=== PATIENT | male | born 1960 | race Caucasian/White ===

== ENCOUNTER 2021-01-09 14:26 | Inpatient (IN) | payer OTHER ==
[~2021-01-09] VITALS: Ht 176.5 cm; Wt 113.9 kg
[2021-01-09] VITALS (7 sets, daily range): BP systolic 116–135; BP diastolic 66–74
[2021-01-09] MEDS ORDERED: ASPIRIN 325MG EC TAB 325 MG TABLET.DR PO ONE (14:45)
[2021-01-09] MEDS ORDERED: NITROGLYCERIN 1GM/1 INCH PACKET TD ONE (14:45)
[2021-01-09 14:58] LABS: BASOPHILS % (AUTO) 0.4 % (0.0-5.0); EOSINOPHILS % (AUTO) 0.8 % (0.0-8.0); HEMATOCRIT 40.1 % (42-54); LYMPHOCYTES % (AUTO) 22.7 % (21.0-51.0); MEAN CORPUSCULAR HEMOGLOBIN 28.2 pg (27.0-33.0); MEAN CORPUSCULAR HGB CONC 32.4 g/dL (32.0-36.0); NEUTROPHILS % (AUTO) 67.7 % (40.0-77.0); PLATELET COUNT (AUTO) 239 K/uL (130-400); RED BLOOD CELL COUNT(AUTO) 4.61 MIL/uL (4.50-6.20); RED CELL DISTRIBUTION WIDTH 12.8 % (11.0-15.5); WHITE BLOOD COUNT (AUTO) 7.7 K/uL (4.8-10.8)
[2021-01-09 15:07] LABS: CARBON DIOXIDE 32 mmol/L (21-32); CHLORIDE 104 mmol/L (101-111); CREATININE 1.2 mg/dL (0.5-1.5); GLOMERULAR FILTR. RATE CALC 65 mL/min (>60); GLUCOSE,RANDOM 138 mg/dL (70-105); POTASSIUM 3.6 mmol/L (3.5-5.1); SODIUM SERUM 143 mmol/L (136-145); UREA NITROGEN, BLOOD 15 mg/dL (7-18)
[2021-01-09 15:09] LABS: INR 1.09 (0.85-1.15); PROTHROMBIN TIME 11.8 SEC (9.6-11.6)
[2021-01-09 15:21] LABS: B-TYPE NATRIURETIC PEPTIDE 24 pg/mL (0-100)
[2021-01-09 15:35] LABS: ALANINE AMINOTRANSFERASE 46 U/L (12-78); ALBUMIN 3.8 g/dL (3.5-5.0); ASPARTATE AMINOTRANSFERASE 17 U/L (10-37); BILIRUBIN,TOTAL 0.4 mg/dL (0.2-1.0); CREATINE KINASE, TOTAL 84 U/L (21-232); MYOGLOBIN 53 ng/mL (10-92); TOTAL PROTEIN, SERUM 7.5 g/dL (6.0-8.3); TROPONIN I < 0.04 ng/mL (0.00-0.06)
[2021-01-09] MEDS ORDERED: HYDRALAZINE HCL 20 MG/ML VIAL IV PRN (19:00)
[2021-01-09] MEDS ORDERED: NITROGLYCERIN 0.4 MG SL TAB SL PRN (19:00)
[2021-01-09] MEDS ORDERED: ALBUTEROL SULFATE 0.083% 2.5 MG/3 ML INH IH PRN (19:00)
[2021-01-09] MEDS ORDERED: ACETAMINOPHEN 325 MG TAB PO PRN (19:00)
[2021-01-09] MEDS ORDERED: GUAIFENESIN-DM 200/20 MG 10 ML PO PRN (19:00)
[2021-01-09] MEDS ORDERED: ZOLPIDEM TARTRATE 5 MG TAB PO PRN (19:00)
[2021-01-09] MEDS ORDERED: LACTULOSE 20 GM/30 ML UDCUP PO PRN (19:00)
[2021-01-09] MEDS ORDERED: ONDANSETRON HCL 4 MG/2 ML VIAL IV PRN (19:00)
[2021-01-09] MEDS ORDERED: MAG HYDROX/AL HYDROX/SIMETH ES 30 ML SUSP UDCUP PO PRN (19:00)
[2021-01-09] MEDS ORDERED: MORPHINE 4 MG SYG (4MG/1ML) IV PRN (19:00)
[2021-01-09] MEDS ORDERED: DIPHENHYDRAMINE HCL 25 MG CAPSULE PO PRN (19:00)
[2021-01-09 20:36] LABS: CREATINE KINASE, TOTAL 91 U/L (21-232); MYOGLOBIN 40 ng/mL (10-92); TROPONIN I < 0.04 ng/mL (0.00-0.06)
[2021-01-09] MEDS: FAMOTIDINE/PF 20 MG/2 ML VIAL IV SCH (21:16)
[2021-01-09] MEDS: ACETAMINOPHEN-CODEINE 300/30MG TAB PO PRN (21:16)
[2021-01-10] VITALS (8 sets, daily range): BP systolic 111–157; BP diastolic 64–82
[2021-01-10] MEDS: ACETAMINOPHEN-CODEINE 300/30MG TAB PO PRN ×2 (05:26→21:31)
[2021-01-10] MEDS: FAMOTIDINE/PF 20 MG/2 ML VIAL IV SCH ×2 (08:27→21:14)
[2021-01-10] MEDS: ASPIRIN 81MG TAB.CHEW PO SCH (08:28)
[2021-01-10] MEDS: ATORVASTATIN CALCIUM 40 MG TABLET PO SCH (08:29)
[2021-01-10] MEDS: ENOXAPARIN SODIUM 40 MG/0.4 ML SYRINGE SQ SCH (08:29)
[2021-01-10] MEDS: ISOSORBIDE MONO 30MG TAB SR PO SCH (15:10)
[2021-01-10] MEDS: METOPROLOL TARTRATE 25 MG TAB PO SCH ×2 (15:11→21:14)
[2021-01-11] VITALS (12 sets, daily range): BP systolic 109–146; BP diastolic 57–92
[2021-01-11 05:26] LABS: BASOPHILS % (AUTO) 0.3 % (0.0-5.0); EOSINOPHILS % (AUTO) 3.7 % (0.0-8.0); HEMATOCRIT 36.2 % (42-54); LYMPHOCYTES % (AUTO) 25.7 % (21.0-51.0); MEAN CORPUSCULAR HEMOGLOBIN 29.3 pg (27.0-33.0); MEAN CORPUSCULAR HGB CONC 33.4 g/dL (32.0-36.0); MEAN CORPUSCULAR VOLUME 87.7 fL (79-99); NEUTROPHILS % (AUTO) 58.1 % (40.0-77.0); PLATELET COUNT (AUTO) 181 K/uL (130-400); RED BLOOD CELL COUNT(AUTO) 4.13 MIL/uL (4.50-6.20); RED CELL DISTRIBUTION WIDTH 12.9 % (11.0-15.5); WHITE BLOOD COUNT (AUTO) 6.6 K/uL (4.8-10.8)
[2021-01-11 05:37] LABS: MAGNESIUM 2.2 mg/dL (1.80-2.40); POTASSIUM 3.6 mmol/L (3.5-5.1)
[2021-01-11] MEDS: LEVOTHYROXINE 125 MCG TABLET PO SCH ×2 (05:49→06:01)
[2021-01-11] MEDS: ACETAMINOPHEN-CODEINE 300/30MG TAB PO PRN (06:01)
[2021-01-11] MEDS: FAMOTIDINE/PF 20 MG/2 ML VIAL IV SCH (08:12)
[2021-01-11] MEDS: METOPROLOL TARTRATE 25 MG TAB PO SCH (08:12)
[2021-01-11] MEDS: ISOSORBIDE MONO 30MG TAB SR PO SCH (08:12)
[2021-01-11] MEDS: ATORVASTATIN CALCIUM 40 MG TABLET PO SCH (08:12)
[2021-01-11] MEDS: ASPIRIN 81MG TAB.CHEW PO SCH (08:45)
[2021-01-11] MEDS: ENOXAPARIN SODIUM 40 MG/0.4 ML SYRINGE SQ SCH (08:46)
[2021-01-11] MEDS ORDERED: IOHEXOL-350 50ML VIAL IV ONE (12:41)
[2021-01-11] MEDS ORDERED: BIVALIRUDIN 250 MG/VIAL IV ONE (12:41)
[2021-01-11] MEDS ORDERED: LIDOCAINE HCL 400MG/20ML VIAL ONE (12:41)
[2021-01-11] MEDS ORDERED: NITROGLYCERIN 2 MG/VIAL VIAL IV ONE (12:41)
[2021-01-11] MEDS ORDERED: IOHEXOL 350 MG/ML 100ML INFUS..BTL IV ONE (12:41)
[2021-01-11] MEDS ORDERED: MIDAZOLAM HCL 1 MG/ML 2ML VIAL ONE (13:38)
[2021-01-11] MEDS ORDERED: FENTANYL CITRATE PF 50 MCG/1 ML 2ML VIAL ONE (13:48)
[2021-01-11] MEDS ORDERED: SODIUM CHLORIDE 0.9% 1000ML 1,000 ML IV SCH (14:15)
== END 2021-01-11 20:10 | disposition home or self-care (01) | DRG 287 ==
LOC: EDH 14:26 → EDHIP 18:54 → 4AH 01-10 07:08
PROVIDERS: ADMIT Internal Medicine; ATTEND Internal Medicine
PROC: 4A023N7 Measurement of Cardiac Sampling and Pressure, Left Heart, Percutaneous Approach (ICD-10-PCS; principal; 2021-01-11)
PROC: B2111ZZ Fluoroscopy of Multiple Coronary Arteries using Low Osmolar Contrast (ICD-10-PCS; 2021-01-11)
PROC: B2151ZZ Fluoroscopy of Left Heart using Low Osmolar Contrast (ICD-10-PCS; 2021-01-11)
DX: I25.110 Atherosclerotic heart disease of native coronary artery with unstable angina pectoris (principal); I10 Essential (primary) hypertension; E78.5 Hyperlipidemia, unspecified; E03.9 Hypothyroidism, unspecified; E11.9 Type 2 diabetes mellitus without complications; Z90.49 Acquired absence of other specified parts of digestive tract; Z82.49 Family history of ischemic heart disease and other diseases of the circulatory system
CPT/HCPCS: 36415; 71045; 80048; 80053; 82550; 83735; 83874; 83880; 84484; 85025; 85378; 85610; 93005; 93458; 94664; 99156; 99157; C1760; C1894; G0378; J0583; J1644; J1650; J2250; J3010; J3490; Q9967

== ENCOUNTER 2021-02-03 06:19 | Day surgery (SDC) | payer OTHER ==
[2021-02-03] VITALS (7 sets, daily range): BP systolic 112–120; BP diastolic 62–76
[~2021-02-03 06:19] MED LIST: 0.9%NACL 1000ML 1,000 ML IV ONE; AEC81 PO; ATOR40TA69 PO; HYDR25TA PO; ISOS30TA92 PO; LEVO125T11 PO; LOSA100T58 PO; METO25TA6 PO
[2021-02-03] MEDS ORDERED: PROPOFOL 10 MG/ML 20ML VIAL IV ONE (08:24)
[2021-02-03] MEDS ORDERED: LIDOCAINE HCL 400MG/20ML VIAL ONE (08:24)
== END 2021-02-03 09:15 | disposition home or self-care (01) ==
LOC: DAH 06:19
PROVIDERS: ATTEND Internal Medicine Gastroenterology
DX: K21.00 Gastro-esophageal reflux disease with esophagitis, without bleeding (principal); K44.9 Diaphragmatic hernia without obstruction or gangrene; E78.5 Hyperlipidemia, unspecified; R07.89 Other chest pain; E03.9 Hypothyroidism, unspecified; K29.70 Gastritis, unspecified, without bleeding; I10 Essential (primary) hypertension; J45.909 Unspecified asthma, uncomplicated; Z72.89 Other problems related to lifestyle; Z79.82 Long term (current) use of aspirin; Z79.899 Other long term (current) drug therapy
CPT/HCPCS: 43239; A4215; A4221; A4222; A4223; A4606; A4620; A4657; A4663; J2704; J3490; J7030

== ENCOUNTER → 2021-02-13 | Outpatient (CLI) | payer OTHER ==
[~2021-02-13] MED LIST changes: -0.9%NACL 1000ML 1,000 ML IV ONE
== END | disposition home or self-care (01) ==
LOC: RAH 08:46
PROVIDERS: ATTEND Internal Medicine Gastroenterology
DX: K21.9 Gastro-esophageal reflux disease without esophagitis (principal)
CPT/HCPCS: 74240

== ENCOUNTER → 2021-03-03 | Outpatient (CLI) | payer OTHER | END | disposition home or self-care (01) | LOC: RAH 14:30 | PROVIDERS: ATTEND Internal Medicine Cardiovascular Disease | DX: K40.90 Unilateral inguinal hernia, without obstruction or gangrene, not specified as recurrent (principal) | CPT/HCPCS: 76882 ==

== ENCOUNTER 2021-04-03 11:44 | Day surgery (SDC) | payer OTHER ==
[2021-04-02 12:35] LABS: BASOPHILS % (AUTO) 0.2 % (0.0-5.0); EOSINOPHILS % (AUTO) 2.1 % (0.0-8.0); HEMATOCRIT 40.8 % (42-54); LYMPHOCYTES % (AUTO) 30.7 % (21.0-51.0); MEAN CORPUSCULAR HEMOGLOBIN 28.4 pg (27.0-33.0); MEAN CORPUSCULAR HGB CONC 32.1 g/dL (32.0-36.0); MEAN CORPUSCULAR VOLUME 88.5 fL (79-99); MONOCYTES % (AUTO) 9.8 % (3.0-13.0); NEUTROPHILS % (AUTO) 56.9 % (40.0-77.0); PLATELET COUNT (AUTO) 223 K/uL (130-400); RED BLOOD CELL COUNT(AUTO) 4.61 MIL/uL (4.50-6.20); RED CELL DISTRIBUTION WIDTH 13.5 % (11.0-15.5); WHITE BLOOD COUNT (AUTO) 6.2 K/uL (4.8-10.8)
[2021-04-02 12:47] LABS: CREATININE 0.9 mg/dL (0.5-1.5); POTASSIUM 4.2 mmol/L (3.5-5.1)
[2021-04-03] VITALS (13 sets, daily range): BP systolic 122–172; BP diastolic 80–95
[~2021-04-03] VITALS: Ht 175.3 cm; Wt 118.4 kg
[~2021-04-03 11:44] MED LIST changes: +OMEP40CA21 PO
[2021-04-03] MEDS ORDERED: CEFAZOLIN SODIUM 1 GM VIAL ONE (12:00)
[2021-04-03] MEDS ORDERED: LACTATED RINGERS 1000ML 1,000 ML IV ONE (12:01)
[2021-04-03] MEDS ORDERED: LIDOCAINE PF 100MG/5ML (2%) SYRINGE 5ML ONE (13:17)
[2021-04-03] MEDS ORDERED: SUCCINYLCHOLINE 200MG/10ML SYR ONE (13:17)
[2021-04-03] MEDS ORDERED: ONDANSETRON 4MG INJ ONE (13:17)
[2021-04-03] MEDS ORDERED: GLYCOPYRROLATE 1 MG/5 ML SYRINGE ONE (13:17)
[2021-04-03] MEDS ORDERED: NEOSTIGMINE 5MG/5ML SYR IV ONE (13:17)
[2021-04-03] MEDS ORDERED: DEXAMETHASONE SOD PHOSPHATE 10MG/ML 1ML VIAL ONE ×2 (13:17→13:48)
[2021-04-03] MEDS ORDERED: PROPOFOL 10 MG/ML 20ML VIAL IV ONE ×2 (13:17→13:25)
[2021-04-03] MEDS ORDERED: MIDAZOLAM HCL 1 MG/ML 2ML VIAL ONE (13:18)
[2021-04-03] MEDS ORDERED: ROCURONIUM 10MG/1ML SYR 10 MG/ML ML ONE ×2 (13:18→16:01)
[2021-04-03] MEDS ORDERED: FENTANYL CITRATE PF 50 MCG/1 ML 2ML VIAL ONE (13:18)
[2021-04-03] MEDS ORDERED: BUPIVACAINE/PF 0.25% 30ML VIAL IJ ONE (14:32)
[2021-04-03] MEDS ORDERED: EPHEDRINE SULFATE 50 MG/ML AMPULE ONE (15:48)
[2021-04-03] MEDS ORDERED: MEPERIDINE-PF 25 MG/ML SYG ONE ×2 (17:05→17:18)
[2021-04-03] MEDS ORDERED: SIMETHICONE 80 MG TAB.CHEW ONE (18:07)
== END 2021-04-03 18:40 | disposition home or self-care (01) ==
LOC: DAH 11:44 → SUH 11:44
PROVIDERS: ATTEND Surgery
DX: K40.90 Unilateral inguinal hernia, without obstruction or gangrene, not specified as recurrent (principal); Z20.822 Contact with and (suspected) exposure to COVID-19; I10 Essential (primary) hypertension; E66.9 Obesity, unspecified; E03.9 Hypothyroidism, unspecified; K21.9 Gastro-esophageal reflux disease without esophagitis; E78.5 Hyperlipidemia, unspecified; Z90.49 Acquired absence of other specified parts of digestive tract; Z98.890 Other specified postprocedural states; Z98.52 Vasectomy status; Z68.30 Body mass index [BMI] 30.0-30.9, adult
CPT/HCPCS: 49650; S2900; 36415; 71046; 80048; 85025; 87635; 93005; C9803; J0330; J0690; J1100; J2001; J2175; J2250; J2405; J2704; J2710; J3010; J3490; J7030; J7120

== ENCOUNTER 2022-04-20 09:53 | Inpatient (IN) | payer OTHER ==
[~2022-04-20] VITALS: Ht 175.3 cm; Wt 104.3 kg
[2022-04-20 10:36] LABS: INR 0.98 (0.85-1.15); PROTHROMBIN TIME 10.7 SEC (9.6-11.6)
[2022-04-20 10:36] LABS: BASOPHILS % (AUTO) 0.3 % (0.0-5.0); EOSINOPHILS % (AUTO) 1.4 % (0.0-8.0); HEMATOCRIT 41.8 % (42-54); LYMPHOCYTES % (AUTO) 20.7 % (21.0-51.0); MEAN CORPUSCULAR HGB CONC 34.2 g/dL (32.0-36.0); MEAN CORPUSCULAR VOLUME 84.8 fL (79-99); MONOCYTES % (AUTO) 8.9 % (3.0-13.0); NEUTROPHILS % (AUTO) 68.3 % (40.0-77.0); PLATELET COUNT (AUTO) 211 K/uL (130-400); RED BLOOD CELL COUNT(AUTO) 4.93 MIL/uL (4.50-6.20); RED CELL DISTRIBUTION WIDTH 13.2 % (11.0-15.5); WHITE BLOOD COUNT (AUTO) 7.8 K/uL (4.8-10.8)
[2022-04-20 10:38] LABS: PARTIAL THROMBOPLASTIN TIME 28.5 SEC (26.3-35.5)
[2022-04-20 10:43] LABS: CREATININE 0.9 mg/dL (0.5-1.5); POTASSIUM 3.8 mmol/L (3.5-5.1)
[2022-04-20 10:44] LABS: ALBUMIN 3.7 g/dL (3.5-5.0); TOTAL PROTEIN, SERUM 7.2 g/dL (6.0-8.3)
[2022-04-20 10:52] LABS: CREATINE KINASE, TOTAL 121 U/L (21-232); LDL DIRECT 99 mg/dL (0-99)
[2022-04-20 11:24] LABS: APPEARANCE,URINE CLOUDY (CLEAR); BILIRUBIN,URINE NEGATIVE (NEGATIVE); COLOR,URINE YELLOW (YELLOW); GLUCOSE, URINE (UA) NEGATIVE (NEGATIVE); KETONES,URINE NEGATIVE (NEGATIVE); LEUKOCYTE ESTERASE ,URINE NEGATIVE Leu/uL (NEGATIVE); NITRATE,URINE NEGATIVE (NEGATIVE); OCCULT BLOOD,URINE TRACE-INTACT (NEGATIVE); PH,URINE 7.5 (5.0-8.0); PROTEIN,URINE NEGATIVE (NEGATIVE); UROBILINOGEN,URINE 0.2 mg/dL (0.2-1.0)
[2022-04-20 11:29] LABS: BACTERIA,URINE Rare /HPF (None Seen); RBC,URINE 0-1 /HPF (0-1); SQUAMOUS EPITHELIAL CELL,UR Rare /HPF (0-2); WBC,URINE 0-1 /HPF (0-1)
[2022-04-20 11:44] LABS: AMPHET/METH SCREEN,URINE NEGATIVE (NEGATIVE); BARBITURATE SCREEN, URINE NEGATIVE (NEGATIVE); BENZODIAZEPINES SCREEN,URINE NEGATIVE (NEGATIVE); CANNABINOID SCREEN,URINE NEGATIVE (NEGATIVE); COCAINE SCREEN,URINE NEGATIVE (NEGATIVE); PHENCYCLIDINE SCREEN,URINE NEGATIVE (NEGATIVE)
[2022-04-20] MEDS ORDERED: LACTULOSE 20 GM/30 ML UDCUP PO PRN (12:00)
[2022-04-20] MEDS ORDERED: ONDANSETRON 4MG INJ IV PRN (12:00)
[2022-04-20] MEDS ORDERED: MAG/ALUM/SIMETH 30 ML UDCUP PO PRN (12:00)
[2022-04-20] MEDS ORDERED: NITROGLYCERIN 0.4 MG SL TAB SL PRN (12:00)
[2022-04-20] MEDS ORDERED: GUAIFENESIN-DM 200/20 MG 10 ML PO PRN (12:00)
[2022-04-20] MEDS ORDERED: DiphenhydrAMINE HCL 50 MG/ML VIAL IV PRN (12:00)
[2022-04-20] MEDS ORDERED: DIPHENHYDRAMINE HCL 25 MG CAPSULE PO PRN (12:00)
[2022-04-20] MEDS ORDERED: ACETAMINOPHEN 325 MG TAB PO PRN (12:00)
[2022-04-20 12:08] LABS: THYROID STIMULATING HORMONE 1.2 uIU/mL (0.36-3.74)
[2022-04-20] MEDS ORDERED: HYDRALAZINE 20MG/ML VIAL IV PRN (13:30)
[2022-04-20] MEDS: HEPARIN 5,000 UNIT VIAL SQ SCH ×2 (14:18→20:19)
[2022-04-20] MEDS: ACETAMINOPHEN 325 MG TAB PO PRN ×2 (15:42→20:18)
[2022-04-20] MEDS ORDERED: LABETALOL 20MG SYG IV ONE (17:29)
[2022-04-20] MEDS ORDERED: LABETALOL 20MG SYG IV PRN (18:00)
[2022-04-20] MEDS: METOPROLOL TARTRATE 25 MG TAB PO SCH (20:17)
[2022-04-20 20:40] VITALS: BP 153/86
[2022-04-20] MEDS ORDERED: FAMOTIDINE 20MG VIAL IV SCH (21:00)
[2022-04-20] MEDS ORDERED: FAMOTIDINE 20MG TAB PO SCH (21:00)
[2022-04-20 23:44] VITALS: BP 158/90
[2022-04-21 04:18] LABS: BASOPHILS % (AUTO) 0.6 % (0.0-5.0); EOSINOPHILS % (AUTO) 3.7 % (0.0-8.0); HEMATOCRIT 41.8 % (42-54); LYMPHOCYTES % (AUTO) 26.2 % (21.0-51.0); MEAN CORPUSCULAR HEMOGLOBIN 28.9 pg (27.0-33.0); MEAN CORPUSCULAR HGB CONC 33.7 g/dL (32.0-36.0); MEAN CORPUSCULAR VOLUME 85.7 fL (79-99); MONOCYTES % (AUTO) 10.3 % (3.0-13.0); PLATELET COUNT (AUTO) 200 K/uL (130-400); RED BLOOD CELL COUNT(AUTO) 4.88 MIL/uL (4.50-6.20); RED CELL DISTRIBUTION WIDTH 13.6 % (11.0-15.5); WHITE BLOOD COUNT (AUTO) 6.2 K/uL (4.8-10.8)
[2022-04-21 04:36] LABS: ALBUMIN 3.5 g/dL (3.5-5.0); TOTAL PROTEIN, SERUM 6.8 g/dL (6.0-8.3)
[2022-04-21 05:41] VITALS: BP 140/79
[2022-04-21 07:59] VITALS: BP 142/87
[2022-04-21] MEDS: METOPROLOL TARTRATE 25 MG TAB PO SCH (08:04)
[2022-04-21] MEDS ORDERED: HYDROCHLOROTHIAZIDE 25 MG TABLET PO SCH (09:00)
[2022-04-21] MEDS ORDERED: ATORVASTATIN 40 MG TABLET PO SCH (09:00)
[2022-04-21] MEDS ORDERED: ASPIRIN 81 MG EC TAB PO SCH (09:00)
[2022-04-21] MEDS ORDERED: LEVOTHYROXINE 125 MCG TABLET PO SCH (09:00)
[2022-04-21] MEDS ORDERED: LOSARTAN 100 MG TABLET PO SCH (09:00)
[2022-04-21] MEDS ORDERED: ISOSORBIDE MONO 30MG SR TAB PO SCH (09:00)
[2022-04-21] MEDS: ACETAMINOPHEN 325 MG TAB PO PRN (10:31)
[2022-04-21 11:58] VITALS: BP 118/72
[2022-04-21] MEDS ORDERED: DIPH25TA22 PO (12:47)
[2022-04-21] MEDS ORDERED: PROC10TA13 PO (12:47)
[2022-04-21] MEDS ORDERED: IBUP-2697 PO (12:47)
[2022-04-21 15:40] VITALS: BP 123/72
== END 2022-04-21 16:38 | disposition home or self-care (01) | DRG 71 ==
LOC: EDH 09:53 → OBSVTOIN 11:35 → INTOOBSV 11:35 → EDHIP 11:35 → 4BH 14:20
PROVIDERS: ADMIT Internal Medicine; ATTEND Internal Medicine
DX: G45.4 Transient global amnesia (principal); E87.1 Hypo-osmolality and hyponatremia; E03.9 Hypothyroidism, unspecified; E78.5 Hyperlipidemia, unspecified; J45.909 Unspecified asthma, uncomplicated; I10 Essential (primary) hypertension
CPT/HCPCS: 36415; 70450; 70551; 71045; 80053; 80305; 81001; 82140; 82550; 82948; 83605; 83721; 83880; 84443; 84484; 85025; 85610; 85730; 87040; 92522; 92610; 93005; 93306; 93880; 93970; 96374; G0378; J1644

== ENCOUNTER 2023-06-30 06:08 | Day surgery (SDC) | payer OTHER ==
[2023-06-19 15:29] VITALS: BP 149/81; PULSE 67; RESP 18
[~2023-06-30] VITALS: Ht 175.3 cm; Wt 111.2 kg
[2023-06-30] VITALS (10 sets, daily range): BP systolic 114–132; BP diastolic 69–82; PULSE 61–69; RESP 12–17
[~2023-06-30 06:08] MED LIST changes: -ATOR40TA69 PO; -HYDR25TA PO; -ISOS30TA92 PO; -LEVO125T11 PO; +LEVO137C4 PO; -LOSA100T58 PO; +LOSA1TAB54 PO; +MAGN200T4 PO; +METO-408 PO; -METO25TA6 PO; +NIFE-79 PO; -OMEP40CA21 PO; +TUMERIC PO; +UBID100C45 PO; +VITAMIN D3 PO; +ZINC50TA15 PO
[2023-06-30] MEDS ORDERED: PROPOFOL 10 MG/ML 20ML VIAL IV ONE ×2 (07:31→07:44)
[2023-06-30] MEDS ORDERED: LIDOCAINE HCL 1% 20 ML VIAL ONE (07:31)
== END 2023-06-30 09:05 | disposition home or self-care (01) ==
LOC: ENDO 06:08 → DAH 06:08 → ENDO 09:05
PROVIDERS: ATTEND Internal Medicine Gastroenterology
DX: Z12.11 Encounter for screening for malignant neoplasm of colon (principal); K63.5 Polyp of colon; K57.30 Diverticulosis of large intestine without perforation or abscess without bleeding; K21.00 Gastro-esophageal reflux disease with esophagitis, without bleeding; I10 Essential (primary) hypertension; J45.909 Unspecified asthma, uncomplicated; K21.9 Gastro-esophageal reflux disease without esophagitis; E78.5 Hyperlipidemia, unspecified; E03.9 Hypothyroidism, unspecified; Z79.899 Other long term (current) drug therapy; Z90.49 Acquired absence of other specified parts of digestive tract; Z98.890 Other specified postprocedural states; Z79.82 Long term (current) use of aspirin
CPT/HCPCS: 45385; J2704; A4620; A4215 ×2; A4223; A7002; A4222; A4221; A4663; J7030; A4606; J3490

== ENCOUNTER → 2025-06-06 | Outpatient (CLI) | payer OTHER ==
[~2025-06-06] MED LIST changes: -LEVO137C4 PO; +LEVO137C5 PO; -ZINC50TA15 PO; +ZINC50TA84 PO
--- NOTE | 2025-06-06 22:14 | HMCIMG ---
EXAM: US Retroperitoneum, Renal CLINICAL HISTORY: Microscopic hematuria TECHNIQUE: Real-time ultrasound of the retroperitoneum with image documentation. COMPARISON: None provided. FINDINGS: RIGHT KIDNEY: Measures 13.0 ??? 5.2 ??? 5.0 cm. Normal cortical echotexture. No renal mass or calculus identified. Mild fullness of the renal pelvis without stefan hydronephrosis. LEFT KIDNEY: Measures 13.1 ??? 5.4 ??? 5.2 cm. Normal cortical echotexture. No renal mass or calculus identified. Mild fullness of the renal pelvis without stefan hydronephrosis. URINARY BLADDER: Pre-void volume 226 cc; post-void residual volume 33 cc. No focal wall thickening or intraluminal lesion visualized. PROSTATE: Enlarged, measuring approximately 47 cc in volume. MISCELLANEOUS: No perinephric fluid collection or additional retroperitoneal abnormality. IMPRESSION: * Bilateral mild renal pelvic fullness, likely representing early pelviectasis; no stefan hydronephrosis. * Mildly enlarged prostate (47 cc) with insignificant post-void residual (33 cc). * No renal mass or calculus identified. /[place]
== END | disposition home or self-care (01) ==
LOC: RAH 14:18
PROVIDERS: ATTEND Urology
DX: N40.0 Benign prostatic hyperplasia without lower urinary tract symptoms (principal); R31.29 Other microscopic hematuria
CPT/HCPCS: 76770

== ENCOUNTER → 2025-07-01 | Outpatient (CLI) | payer OTHER ==
--- NOTE | 2025-07-01 22:20 | HMCIMG ---
EXAM: CT Maxillofacial without Intravenous Contrast. CLINICAL HISTORY: Acute sinusitis. TECHNIQUE: Axial computed tomography images of the face without intravenous contrast. Sagittal and coronal reformations performed. Dose reduction technique was used including one or more of the following: automated exposure control, adjustment of mA and kV according to patient size, and/or iterative reconstruction. CONTRAST: Without. COMPARISON: None provided. FINDINGS: BONES: No acute fracture or focal osseous lesion. The mandible is intact. SOFT TISSUES: Minimal soft tissue density is seen at the left mastoid air cells, suggestive of minimal mastoiditis. SINUSES: Diffuse mucoperiosteal thickening is seen involving both frontal sinuses (more prominent on the left side), both ethmoidal air cells, both sphenoidal sinuses, and both maxillary sinuses, with almost complete opacification of the left maxillary sinus. Both ostiomeatal complexes are obliterated. No evidence of air-fluid level is seen at any of the scanned sinuses. ORBITS: The orbits are normal. No retrobulbar hematoma or mass. IMPRESSION: 1. Diffuse mucoperiosteal thickening involving all scanned sinuses, with almost complete opacification of the left maxillary sinus and obliteration of both ostiomeatal complexes, consistent with pansinusitis. No air-fluid levels. 2. Minimal soft tissue density in the left mastoid air cells, suggestive of minimal mastoiditis. /[place]
== END | disposition home or self-care (01) ==
LOC: RAH 09:10
PROVIDERS: ATTEND Internal Medicine
DX: J01.90 Acute sinusitis, unspecified (principal); B96.89 Other specified bacterial agents as the cause of diseases classified elsewhere
CPT/HCPCS: 70486

== ENCOUNTER → 2025-07-18 | Outpatient (CLI) | payer OTHER ==
[2025-07-18 10:50] LABS: IMMATURE GRANULOCYTE ABSOLUTE 0.02 K/uL (0-1); NUCLEATED RED BLOOD CELLS 0.0 % (0.0-0.19); PLATELET COUNT (AUTO) 212 K/uL (130-400); RED BLOOD CELL COUNT(AUTO) 5.53 MIL/uL (4.50-6.20); RED CELL DISTRIBUTION WIDTH 13.6 % (11.0-15.5); WHITE BLOOD COUNT (AUTO) 8.0 K/uL (4.8-10.8)
[2025-07-18 10:57] LABS: CREATININE 1.1 mg/dL (0.5-1.3); GLOMERULAR FILTR. RATE CALC 74.0 mL/min (>90); GLUCOSE,RANDOM 126.0 mg/dL (70-105); SODIUM SERUM 139.0 mmol/L (136-145); UREA NITROGEN, BLOOD 18.0 mg/dL (7-18)
== END | disposition home or self-care (01) ==
LOC: LAB 10:16
PROVIDERS: ATTEND Urology
DX: R31.29 Other microscopic hematuria (principal)
CPT/HCPCS: 36415; 80048; 85025

== ENCOUNTER → 2025-07-23 | Outpatient (CLI) | payer OTHER ==
[~2025-07-23] MED LIST changes: +IOHEXOL 350 MG/ML 100ML INFUS..BTL IV ONE
--- NOTE | 2025-07-23 20:02 | HMCIMG ---
EXAM: CT SCAN OF THE ABDOMEN AND PELVIS WITH CONTRAST Clinical statement: Microscopic hematuria and abdominal pain. STUDY PROTOCOL: CT radiation dose protocol was performed in accordance with the principles of ALARA. A multislice CT urogram of the abdomen and pelvis was performed with intravenous contrast, including excretory phase imaging at approximately 5 minutes. Sections were obtained from the diaphragms to the inguinal region. RADIATION DOSE: CTDIvol 13 mGy; DLP 610.60 mGycm. CONTRAST: Intravenous contrast administered per CT urogram protocol. COMPARISON: Renal ultrasound from 06/06 at 14:[address] scan of the abdomen and pelvis with contrast from 07/27/2011. FINDINGS: LUNG BASE: No lobar collapse or consolidation in the visualized lung bases. Minimal bilateral pleural effusions are present. LIVER: Liver is normal in size and morphology with smooth margins. Mildly decreased attenuation is present, compatible with mild hepatic steatosis. No suspicious focal hepatic mass is seen; a tiny calcified granuloma is present in the right lobe. No intrahepatic or extrahepatic biliary ductal dilatation. Portal vein, hepatic veins, and inferior vena cava are normal in caliber. GALL BLADDER: Status post cholecystectomy. No biliary ductal dilatation. PANCREAS: Pancreas is normal in size, morphology, and attenuation. The main pancreatic duct is not dilated, and there is no peripancreatic fluid collection or fat stranding. SPLEEN: Spleen is normal in size, morphology, and attenuation without focal lesion. KIDNEYS: Both kidneys are normal in size, shape, position, and attenuation. Right kidney measures approximately 11.7 cm and left kidney approximately 11.6 cm in craniocaudal dimension. No renal mass, calcification, or nephrolithiasis is identified. Corticomedullary differentiation is preserved. Renal pelves are mildly prominent bilaterally, but there is no calyceal dilatation or perinephric stranding and no evidence of hydronephrosis or obstructive uropathy. Prompt, symmetric nephrograms and normal excretion of contrast are seen through both kidneys and along the visualized ureters, without filling defect to suggest urothelial lesion. Perinephric fat is unremarkable bilaterally. GIT /T/ PERITONEAL CAVITY: Stomach is distended but otherwise unremarkable; the gastroesophageal junction, pylorus, and duodenum appear normal. Jejunal and ileal loops show normal caliber, wall thickness, and mucosal pattern without obstruction or inflammatory change. No CT evidence of acute appendicitis. Rectum and large bowel loops are well distended with fecal material but without focal wall thickening or pericolonic fat stranding. No free intraperitoneal air or free fluid is identified. LYMPHNODES: No pathologically enlarged abdominopelvic lymph nodes are identified. RETROPERITONEUM: Both adrenal glands are normal in morphology and attenuation. The abdominal aorta and inferior vena cava are normal in position and caliber, with mild aortic atherosclerotic calcifications. PELVIS: Urinary bladder is normally distended with smooth contour and no intraluminal filling defect on excretory phase images. Bladder wall is mildly thickened, measuring up to approximately 6 mm, without focal nodular mass. Prostate is mildly enlarged; appearance is compatible with prostatomegaly. MUSCULOSKELETAL: No acute osseous abnormality or suspicious osseous lesion is seen. Background osteopenia with degenerative changes in the spine. OTHER: Extra-abdominal and paraspinal soft tissues are unremarkable. Tiny fat-containing umbilical hernia and a small hiatal hernia are present. IMPRESSION: * CT urogram demonstrates no renal, ureteric, or bladder mass, calculus, or obstructive uropathy to account for microscopic hematuria. Bilateral kidneys enhance and excrete contrast normally, and the visualized urothelial tract is free of discrete filling defects. * Mild bilateral prominence of the renal pelves without calyceal dilatation or perinephric stranding, compatible with mild pelviectasis/prominent renal pelvis rather than stefan hydronephrosis, in keeping with prior ultrasound findings. * Mild circumferential bladder wall thickening (up to approximately 6 mm) with mild prostatomegaly. In the setting of microscopic hematuria, recommend urology follow-up and cystoscopic evaluation to exclude lower urinary tract/urothelial pathology, along with PSA correlation as clinically indicated. * Mild hepatic steatosis and tiny calcified granuloma in the right hepatic lobe, likely sequela of remote granulomatous disease, without suspicious focal hepatic mass. * Minimal bilateral pleural effusions and mild aortic atherosclerotic calcifications; osteopenia with degenerative spinal changes. * Tiny fat-containing umbilical hernia and small hiatal hernia, without evidence of complication. * Compared with the renal ultrasound from 06/[address] abdomen/pelvis with contrast from 07/27/2011, there remains mild bilateral renal pelvic prominence and prostatomegaly without interval development of hydronephrosis, renal mass, or new obstructive uropathy. /[place]
== END | disposition home or self-care (01) ==
LOC: RAH 07:35
PROVIDERS: ATTEND Urology
DX: K76.0 Fatty (change of) liver, not elsewhere classified (principal); N40.0 Benign prostatic hyperplasia without lower urinary tract symptoms; J98.4 Other disorders of lung; I70.0 Atherosclerosis of aorta; R31.29 Other microscopic hematuria; N32.89 Other specified disorders of bladder; M85.88 Other specified disorders of bone density and structure, other site; M47.817 Spondylosis without myelopathy or radiculopathy, lumbosacral region; K42.9 Umbilical hernia without obstruction or gangrene; K44.9 Diaphragmatic hernia without obstruction or gangrene; Z90.49 Acquired absence of other specified parts of digestive tract
CPT/HCPCS: 74178; Q9967